=== PATIENT | male | born 1950 | race Caucasian/White ===

== ENCOUNTER → 2021-09-19 | Day surgery (SDC) | payer MEDICARE, OTHER ==
[2021-09-16 12:18] LABS: BASOPHILS % 0.7 % (0.0-1.0); EOSINOPHILS # (AUTO) 0.2 (0.0-0.4); EOSINOPHILS % 2.9 % (0.0-6.0); HEMATOCRIT 44.7 % (38.2-49.6); HEMOGLOBIN 14.2 g/dL (14.0-18.0); LYMPHOCYTES # (AUTO) 1.4 (1.0-3.2); LYMPHOCYTES % 24.5 % (18.0-39.1); MEAN CORPUSCULAR HEMOGLOBIN 30.9 pg (28-32); MEAN CORPUSCULAR HGB CONC 31.8 g/dL (31-35); MEAN CORPUSCULAR VOLUME 97.2 fL (81-99); MONOCYTES # (AUTO) 0.6 (0.2-0.8); NEUTROPHILS # (AUTO) 3.4 (2.1-6.9); NEUTROPHILS % 61.2 % (38.7-80.0); PLATELET COUNT 183 x10e3/uL (140-360); RED CELL DISTRIBUTION WIDTH 12.1 % (11.7-14.4)
[2021-09-16 12:35] LABS: ANION GAP 14.1 mmol/L (8-16); CALCIUM 9.4 mg/dL (8.4-10.2); CREATININE, SERUM 1.13 mg/dL (0.72-1.25); POTASSIUM 4.1 mmol/L (3.5-5.1)
[~2021-09-19] MED LIST: ALTOPREV40 MG PO; BUPIVACAINE 0.25% 30ML SDV ONE; COLLAGEN PO; COQ1050 MG PO; DEXAMETHASONE SOD PHOS INJ 4 MG/ML SDV ONE; EPHEDRINE SULFATE INJ 50 MG/ML VIAL ONE; FENTANYL CITRATE/PF 100MCG/2 ML INJ ONE; GLYCOPYRROLATE INJ 0.2 MG/ML VIAL ONE; L-LYSINE500 M2 PO; LEVOTHYROXINE25 MC1 PO; LIDOCAINE 2%/ EPINEPHRINE 20ML MDV ONE; LIDOCAINE HCL 2% LOCAL INJ 5 ML SDV VIAL INJ ONE; MIDAZOLAM HCL 2 MG/2 ML VIAL ONE; MULTIVITAMIN1 EACH PO; ONDANSETRON HCL INJ 2MG/ML 2ML 2 MG/ML VIAL ONE; POVIDONE IODINE 0.05% 0.05 % ML PO ONE; PROPOFOL IV EMULSION 10 MG/ML 20 ML VIAL ONE; SEVOFLURANE INHAL SOLN 250 ML PEN BTL ONE; VALSARTAN-HCTZ1 EACH PO; ZYRTEC10 M3 PO
[2021-09-19 12:15] VITALS: BP 118/64
== END | disposition home or self-care (01) ==
LOC: OR 07:09
PROVIDERS: ATTEND Surgery
DX: K40.90 Unilateral inguinal hernia, without obstruction or gangrene, not specified as recurrent (principal); D17.6 Benign lipomatous neoplasm of spermatic cord; E78.5 Hyperlipidemia, unspecified; I10 Essential (primary) hypertension; E03.9 Hypothyroidism, unspecified; H91.90 Unspecified hearing loss, unspecified ear; Z01.810 Encounter for preprocedural cardiovascular examination; Z01.812 Encounter for preprocedural laboratory examination; Z01.818 Encounter for other preprocedural examination; Z20.822 Contact with and (suspected) exposure to COVID-19; Z79.899 Other long term (current) drug therapy
CPT/HCPCS: 36415; 49505; 71046; 80048; 85025; 93005; J2001; U0002; J1100; J2250; J2405; J3010

== ENCOUNTER 2021-10-24 20:39 | Emergency (ER) | payer MEDICARE ==
[~2021-10-24] VITALS: Ht 175.3 cm; Wt 88.5 kg
[~2021-10-24 20:39] MED LIST changes: -BUPIVACAINE 0.25% 30ML SDV ONE; -DEXAMETHASONE SOD PHOS INJ 4 MG/ML SDV ONE; -EPHEDRINE SULFATE INJ 50 MG/ML VIAL ONE; -FENTANYL CITRATE/PF 100MCG/2 ML INJ ONE; -GLYCOPYRROLATE INJ 0.2 MG/ML VIAL ONE; -LIDOCAINE 2%/ EPINEPHRINE 20ML MDV ONE; -LIDOCAINE HCL 2% LOCAL INJ 5 ML SDV VIAL INJ ONE; -MIDAZOLAM HCL 2 MG/2 ML VIAL ONE; -ONDANSETRON HCL INJ 2MG/ML 2ML 2 MG/ML VIAL ONE; -POVIDONE IODINE 0.05% 0.05 % ML PO ONE; -PROPOFOL IV EMULSION 10 MG/ML 20 ML VIAL ONE; -SEVOFLURANE INHAL SOLN 250 ML PEN BTL ONE
[2021-10-24] MEDS ORDERED: METHOCARBAMOL 750 MG TAB PO ONE (21:20)
[2021-10-24 22:43] VITALS: BP 125/76
[2021-10-24] MEDS ORDERED: HYDROCODON-ACE1 EAC9 PO (22:50)
== END 2021-10-24 22:50 | disposition home or self-care (01) ==
LOC: ER 21:05
DX: S39.012A Strain of muscle, fascia and tendon of lower back, initial encounter (principal); M54.6 Pain in thoracic spine; M25.511 Pain in right shoulder; M25.561 Pain in right knee; I10 Essential (primary) hypertension; H54.62 Unqualified visual loss, left eye, normal vision right eye; E03.9 Hypothyroidism, unspecified; E78.5 Hyperlipidemia, unspecified
CPT/HCPCS: 72128; 72131; 99283

== ENCOUNTER → 2021-12-13 | Outpatient (CLI) | payer MEDICARE ==
[~2021-12-13] MED LIST changes: +HYDROCODON-ACE1 EAC9 PO
== END ==
LOC: MRI 12:31
PROVIDERS: ATTEND Neurological Surgery
DX: M54.16 Radiculopathy, lumbar region (principal)
CPT/HCPCS: 72148

== ENCOUNTER 2025-04-22 16:45 | Emergency (ER) | payer MEDICARE ==
[~2025-04-22] VITALS: Ht 175.3 cm; Wt 88.5 kg
[2025-04-22 17:47] LABS: BASOPHILS % 0.6 % (0.0-1.0); EOSINOPHILS % 1.1 % (0.0-6.0); LYMPHOCYTES % 7.6 % (18.0-39.1); MONOCYTES % 8.1 % (4.4-11.3); NEUTROPHILS % 82.3 % (38.7-80.0); RED CELL DISTRIBUTION WIDTH 12.4 % (11.7-14.4)
[2025-04-22] MEDS: ASPIRIN 81 MG CHEW TAB PO ONE (17:57)
[2025-04-22 18:06] LABS: CORONAVIRUS COVID-19 AG NEGATIVE (NEGATIVE); INFLUENZA A NAA NEGATIVE (NEGATIVE); INFLUENZA B NAA NEGATIVE (NEGATIVE)
[2025-04-22 18:17] LABS: EST GLOMERULAR FILTRATION RATE 65.0 ML/MIN (>=60)
[2025-04-22] MEDS ORDERED: ACETAMINOPHEN 325 MG TAB ONE (20:15)
[2025-04-22] MEDS: ACETAMINOPHEN 325 MG TAB PO STA (20:28)
[2025-04-22 21:07] VITALS: PULSE 87; RESP 19; TEMP 100.5
[2025-04-22] MEDS: SODIUM CHLORIDE 0.9% 1000ML 1,000 ML IV STA (21:14)
[2025-04-22 22:18] VITALS: BP 98/62; PULSE 70; RESP 16; TEMP 98.5; O2SAT 97
== END 2025-04-22 22:25 | disposition home or self-care (01) ==
LOC: ER 16:55
DX: R07.89 Other chest pain (principal); R50.9 Fever, unspecified; I10 Essential (primary) hypertension; E03.9 Hypothyroidism, unspecified; E78.5 Hyperlipidemia, unspecified; H54.62 Unqualified visual loss, left eye, normal vision right eye
CPT/HCPCS: 36415; 71045; 80053; 83690; 84484; 85025; 87426; 93005; 99284; J7030